=== PATIENT | female | born 1960 | race Caucasian/White ===

== ENCOUNTER 2021-09-22 10:15 | Outpatient (CLI) | payer BC | END 2021-09-22 10:16 | disposition home or self-care (01) | LOC: CSHMAMMO 10:15 | PROVIDERS: ATTEND Family Medicine | DX: Z12.31 Encounter for screening mammogram for malignant neoplasm of breast (principal) | CPT/HCPCS: 77063; 77067 ==

== ENCOUNTER 2022-10-05 13:02 | Outpatient (CLI) | payer BC ==
[2022-10-05] MEDS ORDERED: Iopamidol 300 61% 100 ML VIAL FS ONE (14:09)
== END 2022-10-05 13:03 | disposition home or self-care (01) ==
LOC: CSHCT 13:02
PROVIDERS: ATTEND Family Medicine
DX: N28.89 Other specified disorders of kidney and ureter (principal); D17.71 Benign lipomatous neoplasm of kidney
CPT/HCPCS: 74178; 82565; Q9967